=== PATIENT | female | born 1985 | race Two or more races ===

== ENCOUNTER 2016-07-07 21:42 | Emergency (ER) | payer OTHER ==
--- NOTE | 2016-07-07 22:13 | Emergency Department Record ---
History of Present Illness - General Stated complaint: RING STUCK ON FINGER Time Seen by Provider: 07/07/16 22:03 Source: Patient, Family Mode of Arrival: Ambulatory Limitations: No limitations - History of Present Illness Initial comments: 31yo female presents with a ring stuck on her finger. No recent injury. She has some swelling and weight gain with a prior . No paleness or redness. No fever or signs of infection. MD Complaint: Extremity swelling -: Week(s) History of Same: No Radiation: None Consistency: Constant Improves with: Nothing Worsens with: Nothing Associated Symptoms: Denies other symptoms - Related Data Home Medications Medication Instructions Recorded Confirmed Last Taken Hydrocodone/Acetaminophen [Ione 1 tab PO Q4H PRN 07/07/16 07/07/16 Unknown 5mg/325mg] Ibuprofen [Motrin 600Mg] 600 mg PO Q6H 07/07/16 07/07/16 Unknown Pnv95/Ferrous Fumarate/FA 1 each PO DAILY 07/07/16 07/07/16 Unknown [ Caplet] Allergies Allergy/AdvReac Type Severity Reaction Status Date / Time No Known Drug Allergies Allergy Verified 07/07/16 22:22 Review of Systems Constitutional: Denies: Chills, Fever Eyes: Denies: Eye pain ENT: Denies: Congestion, Throat pain Respiratory: Denies: Cough Cardiovascular: Denies: Chest pain, Palpitations, Syncope Endocrine: Denies: Fatigue Gastrointestinal: Denies: Abdominal pain, Diarrhea, Nausea, Vomiting Genitourinary: Denies: Dysuria Musculoskeletal: Reports: Joint swelling. Denies: Arthralgia, Back pain, Myalgia Skin: Denies: Bruising, Change in color, Rash Neurological: Denies: Headache Psychiatric: Denies: Anxiety Hematological/Lymphatic: Denies: Blood Clots, Easy bleeding, Easy bruising, Swollen glands Physical Exam - General General Appearance: Alert, Oriented x3, Cooperative, No acute distress Limitations: No limitations - Head Head exam: Normal inspection - Eye Eye exam: Normal appearance - ENT ENT exam: Normal exam - Neck Neck exam: Normal inspection - Cardiovascular Peripheral Pulses: 2+: Radial (R), Radial (L) - Rectal Rectal exam: Deferred - exam: Deferred - Extremities Extremities exam: Normal inspection Image of Hand: 1 - ring, no erythema, no paleness or coolness, full ROM. - Neurological Neurological exam: Alert, Oriented X3 - Psychiatric Psychiatric exam: Normal affect, Normal mood - Skin Skin exam: Dry, Intact, Normal color, Warm. negative: Abrasion, Cyanosis, Diaphoretic, Erythema, Mottled Course Vital Signs 07/07/16 21:47 Temperature 99 F Pulse Rate [ 106 H Pulse Ox Probe] Respiratory 16 Rate Blood Pressure 131/83 [Left Arm] Pulse Ox 99 - Reevaluation(s) Reevaluation #1: The ring was cut off There is no redness, minimal swelling, full ROM without restriction. No further treatment needed 07/07/16 22:32 07/07/16 23:20 Disposition Disposition: Discharge Clinical Impression: Constriction ring of upper extremity Disposition: Home, Self-Care Condition: (1) Good Additional Instructions: Return if you have pain, redness or continued swelling or any new concerns. Forms: Patient Portal Access Time of Disposition: 22:31
== END 2016-07-07 22:46 | disposition home or self-care (01) ==
LOC: ER 21:42
DX: S60.445A External constriction of left ring finger, initial encounter (principal); W49.04XA Ring or other jewelry causing external constriction, initial encounter
CPT/HCPCS: 99283